=== PATIENT | male | born 1965 ===

== ENCOUNTER 2016-06-27 10:31 | Emergency (ER) | payer OTHER ==
[2016-06-27 10:45] VITALS: TEMP 98.8
[2016-06-27] MEDS ORDERED: TDAP Vaccine 0.5 mL Syr IM ONE (11:14)
[2016-06-27] MEDS ORDERED: Silver Sulfadiazine 1% Cream (20 gm) TOP STA (11:14)
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
[2016-06-27 12:32] VITALS: BP 118/77; PULSE 80; RESP 16; O2SAT 99
== END 2016-06-27 12:30 | disposition home or self-care (01) ==
LOC: ED 10:31
DX: T22.211A Burn of second degree of right forearm, initial encounter (principal); T23.201A Burn of second degree of right hand, unspecified site, initial encounter; X11.8XXA Contact with other hot tap-water, initial encounter; Z23 Encounter for immunization